=== PATIENT | male | born 1980 | race Caucasian/White ===

== ENCOUNTER → 2025-02-08 07:16 | Outpatient (REF) | payer BC, SELFPAY ==
[2025-02-08 08:16] LABS: Urine Character Clear (Clear)
== END ==
LOC: REG 07:16
PROVIDERS: ATTENDING PHYSICIAN Urology; OTHER PHYSICIAN Internal Medicine
DX: R97.20 Elevated prostate specific antigen [PSA] (principal); E29.1 Testicular hypofunction; R35.0 Frequency of micturition; Z02.89 Encounter for other administrative examinations
CPT/HCPCS: 36415; 81003; 84153; 84154; 84270; 84402; 84403; 86480; 86787; 87086

== ENCOUNTER → 2025-03-08 08:23 | Outpatient (REF) | payer BC, SELFPAY ==
[2025-03-08 09:09] LABS: Hematocrit 46.3 % (39.0-52.0); Hemoglobin 15.8 g/dL (13.0-18.0); Mean Corp Hgb Conc. 34.1 g/dL (33.0-37.0); Mean Corpuscular Volume 86.1 fL (80.0-94.0); Nucleated Red Blood Cells % 0 % (-); Platelet Count 311 10^3/uL (130-400); Red Cell Dist. Width 12.9 % (11.5-14.5)
[2025-03-08 09:41] LABS: Blood Urea Nitrogen 19 mg/dl (9-20); Calcium 9.6 mg/dl (8.4-10.2); Carbon Dioxide 29 mmol/L (22-30); Chloride 105 mmol/L (98-107); Glucose 105 mg/dl (70-99); Potassium 5.2 mmol/L (3.5-5.1); Sodium 140 mmol/L (135-145); eGFR > 60.00
== END ==
LOC: REG 08:23
PROVIDERS: FAMILY PHYSICIAN Internal Medicine
DX: Z01.818 Encounter for other preprocedural examination (principal)
CPT/HCPCS: 36415; 80048; 85025

== ENCOUNTER → 2025-04-26 06:47 | Outpatient (REF) | payer BC, SELFPAY ==
[2025-04-26 07:30] LABS: Hematocrit 48.7 % (39.0-52.0)
== END ==
LOC: REG 06:47
PROVIDERS: ATTENDING PHYSICIAN Urology; FAMILY PHYSICIAN Internal Medicine
DX: E29.1 Testicular hypofunction (principal)
CPT/HCPCS: 36415; 82671; 84403; 85014